=== PATIENT | female | born 1995 | race African-American/Black ===

== ENCOUNTER 2016-03-18 14:20 | Emergency (ER) | payer MEDICAID ==
[~2016-03-18] VITALS: Ht 162.6 cm; Wt 57.2 kg
[~2016-03-18 14:20] MED LIST: ASPI81CH43; LEVE250T18 PO; OMEP20CA5 PO
[2016-03-18 15:20] LABS: Basophils # (auto) 0 uL; Basophils % (auto) 0.6 % (0.0-2.0); DEFINITIVE VIEW TRANSMISSION; Eosinophils # (auto) 0 uL; Eosinophils % (auto) 0.5 % (0.0-7.0); Hematocrit 37.3 % (36.0-46.0); Hemoglobin 11.9 g/dL (12.2-16.2); Lymphocytes # (auto) 1.3 uL; Lymphocytes % (auto) 18.6 % (10.0-50.0); Mean Corpuscular Hemoglobin 26.7 pg (28.0-32.0); Mean Corpuscular Volume 83.4 fL (80.0-100.0); Monocytes # (auto) 0.3 uL; Monocytes % (auto) 5.1 % (0.0-12.0); Neutrophils # (auto) 5.2 uL; Neutrophils % (auto) 75.2 % (37.0-80.0); Platelet Count (auto) 242 10^3/uL (140-450); Red Cell Distribution Width 16.6 % (11.6-16.0); SUSPECT VIEW TRANSMISSION; White Blood Cell 6.9 10^3/uL (4.4-10.8)
[2016-03-18 15:43] LABS: Albumin 3.7 g/dL (3.4-5.0); BUN/Creatinine Ratio 18.3; Bilirubin, Total 0.4 mg/dL (0.2-1.0); Calcium 9.3 mg/dL (8.5-10.1); Potassium 3.2 mmol/L (3.5-5.1); Total Protein 8.3 g/dL (6.4-8.2)
[2016-03-18 17:47] LABS: Urine Bilirubin Negative (Negative); Urine Blood Negative /uL (Negative); Urine Color Yellow (Yellow); Urine Glucose Normal (Normal); Urine Mucus FEW (None Seen); Urine Nitrite Negative (Negative); Urine RBC 59 /hpf (0 - 4); Urine Squamous Epithelial Cell MANY /hpf (<5); Urine pH 6.5 (5.0-8.0)
[2016-03-18 17:58] LABS: Urine Ketone 4+ (Negative)
[2016-03-18] MEDS ORDERED: cefTRIAXone SOD 1,000 MG VL IM ONE (18:45)
[2016-03-18] MEDS ORDERED: POTASSIUM CHL 20 Meq TABLET PO ONE (18:45)
[2016-03-18] MEDS ORDERED: PROMETHAZINE HCL 25 MG/ML 1ML IM ONE (18:45)
[2016-03-18 19:12] VITALS: BP 111/69
== END 2016-03-18 19:48 | disposition home or self-care (01) ==
LOC: ER 14:24
DX: O23.42 Unspecified infection of urinary tract in pregnancy, second trimester (principal); O21.9 Vomiting of pregnancy, unspecified; Z88.8 Allergy status to other drugs, medicaments and biological substances
CPT/HCPCS: 36415; 80053; 81001; 84702; 85025; 96372; 99284; J0696; J2550

== ENCOUNTER 2016-04-29 16:19 | Emergency (ER) | payer MEDICAID ==
[~2016-04-29] VITALS: Ht 162.6 cm; Wt 68.0 kg
[2016-04-29 16:27] VITALS: BP 124/78
[2016-04-29 16:51] LABS: Basophils # (auto) 0.1 uL; Basophils % (auto) 0.8 % (0.0-2.0); Eosinophils # (auto) 0.1 uL; Eosinophils % (auto) 1.6 % (0.0-7.0); Hematocrit 39.5 % (36.0-46.0); Hemoglobin 12.8 g/dL (12.2-16.2); Lymphocytes # (auto) 1.7 uL; Lymphocytes % (auto) 20.5 % (10.0-50.0); Mean Corpuscular Hemoglobin 27.2 pg (28.0-32.0); Mean Corpuscular Hgb Conc. 32.4 g/dL (32.0-36.0); Mean Corpuscular Volume 83.8 fL (80.0-100.0); Mean Platelet Volume 10.8 fL (7.4-10.4); Monocytes # (auto) 0.5 uL; Monocytes % (auto) 5.3 % (0.0-12.0); Neutrophils # (auto) 6.1 uL; Neutrophils % (auto) 71.8 % (37.0-80.0); Platelet Count (auto) 164 10^3/uL (140-450); Red Cell Distribution Width 15.6 % (11.6-16.0); White Blood Cell 8.5 10^3/uL (4.4-10.8)
[2016-04-29 17:18] LABS: Albumin 3.3 g/dL (3.4-5.0); BUN/Creatinine Ratio 12.8; Calcium 8.3 mg/dL (8.5-10.1); Potassium 3.3 mmol/L (3.5-5.1)
[2016-04-29 17:21] LABS: Bilirubin, Total 0.2 mg/dL (0.2-1.0); Total Protein 7.8 g/dL (6.4-8.2)
== END 2016-04-30 02:04 | disposition left against medical advice (07) ==
LOC: EDUNIT# 16:19 → ER 16:23
DX: O26.892 Other specified pregnancy related conditions, second trimester (principal); R10.9 Unspecified abdominal pain; O21.9 Vomiting of pregnancy, unspecified; Z53.21 Procedure and treatment not carried out due to patient leaving prior to being seen by health care provider
CPT/HCPCS: 36415; 76805; 80053; 84702; 85025

== ENCOUNTER 2016-08-04 12:00 | Observation (INO) | payer MEDICAID, OTHER ==
[~2016-08-04 12:00] MED LIST changes: -OMEP20CA5 PO; +OMEP20CA74 PO
== END 2016-08-04 13:25 | disposition other institution (70) | DRG 566 ==
LOC: EDBD → LDRP 12:00
PROVIDERS: ADMIT Specialist; ATTEND Specialist
DX: O26.893 Other specified pregnancy related conditions, third trimester (principal); K92.0 Hematemesis; R04.0 Epistaxis; Z3A.36 36 weeks gestation of pregnancy
CPT/HCPCS: 59025; 81002; G0378

== ENCOUNTER 2016-08-04 13:35 | Emergency (ER) | payer MEDICAID ==
[~2016-08-04] VITALS: Ht 162.6 cm; Wt 68.0 kg
[2016-08-04 14:02] VITALS: BP 117/77
[2016-08-04 14:29] LABS: Basophils # (auto) 0 uL; Basophils % (auto) 0.4 % (0.0-2.0); CONDITION Y; DEFINITIVE Y; Eosinophils # (auto) 0 uL; Eosinophils % (auto) 0.6 % (0.0-7.0); Hematocrit 35.5 % (36.0-46.0); Hemoglobin 11.3 g/dL (12.2-16.2); Lymphocytes # (auto) 1.2 uL; Lymphocytes % (auto) 15.5 % (10.0-50.0); Mean Corpuscular Hemoglobin 26.6 pg (28.0-32.0); Mean Corpuscular Hgb Conc. 31.7 g/dL (32.0-36.0); Mean Corpuscular Volume 83.9 fL (80.0-100.0); Mean Platelet Volume 11.9 fL (7.4-10.4); Monocytes # (auto) 0.6 uL; Monocytes % (auto) 7.9 % (0.0-12.0); Neutrophils # (auto) 5.7 uL; Neutrophils % (auto) 75.6 % (37.0-80.0); Platelet Count (auto) 154 10^3/uL (140-450); Red Cell Distribution Width 16.3 % (11.6-16.0); White Blood Cell 7.5 10^3/uL (4.4-10.8)
[2016-08-04 14:50] LABS: Albumin 2.5 g/dL (3.4-5.0); BUN/Creatinine Ratio 11.3; Bilirubin, Total 0.2 mg/dL (0.2-1.0); Calcium 8.2 mg/dL (8.5-10.1); Potassium 4.4 mmol/L (3.5-5.1); Total Protein 7.2 g/dL (6.4-8.2)
== END 2016-08-04 19:54 | disposition left against medical advice (07) ==
LOC: EDBD → ER 13:35
DX: R11.2 Nausea with vomiting, unspecified (principal); Z53.21 Procedure and treatment not carried out due to patient leaving prior to being seen by health care provider
CPT/HCPCS: 36415; 80053; 85025

== ENCOUNTER 2016-08-04 19:33 | Observation (INO) | payer MEDICAID ==
[2016-08-04] MEDS ORDERED: LACTATED RINGER'S 1,000 ML IV ONE (20:36)
[2016-08-04] MEDS ORDERED: ONDANSETRON HCL 4 MG/2 ML VIAL IV ONE (20:45)
[2016-08-04 21:03] LABS: Urine Bilirubin Negative (Negative); Urine Color Yellow (Yellow); Urine Glucose Normal (Normal); Urine Ketone TRACE (Negative); Urine Mucus FEW (None Seen); Urine Nitrite Negative (Negative); Urine RBC 18 /hpf (0 - 4); Urine Squamous Epithelial Cell MOD /hpf (<5); Urine WBC Clumps PRESENT /hpf (None Seen); Urine pH 6.5 (5.0-8.0)
[2016-08-04 21:08] LABS: Urine Blood 1+ /uL (Negative)
== END 2016-08-04 22:44 | disposition home or self-care (01) | DRG 566 ==
LOC: EDBD → LDRP 19:33
PROVIDERS: ADMIT Specialist; ATTEND Specialist
DX: O42.913 Preterm premature rupture of membranes, unspecified as to length of time between rupture and onset of labor, third trimester (principal); O22.33 Deep phlebothrombosis in pregnancy, third trimester; I82.4Z2 Acute embolism and thrombosis of unspecified deep veins of left distal lower extremity; E86.0 Dehydration; O99.283 Endocrine, nutritional and metabolic diseases complicating pregnancy, third trimester; O21.2 Late vomiting of pregnancy; O26.893 Other specified pregnancy related conditions, third trimester; M54.9 Dorsalgia, unspecified; R10.30 Lower abdominal pain, unspecified; Z3A.36 36 weeks gestation of pregnancy; Z79.01 Long term (current) use of anticoagulants
CPT/HCPCS: 80307; 81001; 87086; 96374; G0378

== ENCOUNTER 2016-08-05 01:57 | Observation (INO) | payer MEDICAID ==
[~2016-08-05] VITALS: Ht 162.6 cm; Wt 68.0 kg
[2016-08-05] MEDS ORDERED: SODIUM CHLORIDE 0.9% 1,000 ML IV ONE (07:37)
[2016-08-05 07:59] LABS: Basophils # (auto) 0 uL; Basophils % (auto) 0.3 % (0.0-2.0); CONDITION AutoValidated; DEFINITIVE SEE PRINTOUT; Eosinophils # (auto) 0 uL; Eosinophils % (auto) 0.5 % (0.0-7.0); Hematocrit 33.1 % (36.0-46.0); Hemoglobin 10.6 g/dL (12.2-16.2); Lymphocytes # (auto) 1.1 uL; Lymphocytes % (auto) 14.7 % (10.0-50.0); Mean Corpuscular Hemoglobin 26.2 pg (28.0-32.0); Mean Corpuscular Hgb Conc. 31.9 g/dL (32.0-36.0); Mean Corpuscular Volume 82.2 fL (80.0-100.0); Mean Platelet Volume 11.1 fL (7.4-10.4); Monocytes # (auto) 0.5 uL; Monocytes % (auto) 7.1 % (0.0-12.0); Neutrophils # (auto) 5.7 uL; Neutrophils % (auto) 77.4 % (37.0-80.0); Platelet Count (auto) 187 10^3/uL (140-450); Red Cell Distribution Width 16.1 % (11.6-16.0); White Blood Cell 7.4 10^3/uL (4.4-10.8)
[2016-08-05 08:19] LABS: Partial Thromboplastin Time 27.3 sec (22.64-33.71); Prothrombin Time 9.7 sec (9.37-12.3)
[2016-08-05 08:23] LABS: INR 0.89 (0.9-1.15)
[2016-08-05 08:37] LABS: Albumin 2.7 g/dL (3.4-5.0); BUN/Creatinine Ratio 14.5; Bilirubin, Total 0.2 mg/dL (0.2-1.0); Calcium 8.6 mg/dL (8.5-10.1); Potassium 4.5 mmol/L (3.5-5.1); Total Protein 7.1 g/dL (6.4-8.2)
[2016-08-05] MEDS ORDERED: PROMETHAZINE HCL 25 MG/ML 1ML IM ONE (08:45)
[2016-08-05 09:10] LABS: Urine Bilirubin Negative (Negative); Urine Blood TRACE /uL (Negative); Urine Color Yellow (Yellow); Urine Glucose Normal (Normal); Urine Ketone TRACE (Negative); Urine Mucus FEW (None Seen); Urine Nitrite Negative (Negative); Urine RBC 35 /hpf (0 - 4); Urine Squamous Epithelial Cell MOD /hpf (<5); Urine pH 6.5 (5.0-8.0)
[2016-08-05 10:27] VITALS: BP 106/72
== END 2016-08-05 10:33 | disposition home or self-care (01) | DRG 463 ==
LOC: EDBD → ER 01:57 → OVERFLOW 07:11 → ER 10:33
PROVIDERS: ADMIT Emergency Medicine; ATTEND Emergency Medicine
DX: N39.0 Urinary tract infection, site not specified (principal); Z87.11 Personal history of peptic ulcer disease; Z79.899 Other long term (current) drug therapy
CPT/HCPCS: 36415; 80053; 81001; 85025; 85610; 85730; 96372; 99285; G0378; J2550

== ENCOUNTER 2016-08-08 18:57 | Observation (INO) | payer MEDICAID ==
[~2016-08-08] VITALS: Ht 167.6 cm; Wt 77.1 kg
[2016-08-08] MEDS ORDERED: DEXTROSE 50% SYRINGE 50 ML IV ONE (19:09)
[2016-08-08] MEDS ORDERED: SODIUM CHLORIDE 0.9% 1,000 ML IVB ONE (19:18)
[2016-08-08] MEDS ORDERED: DEXTROSE (50%) 50ML SYRG IV ONE (19:30)
[2016-08-08] MEDS ORDERED: ONDANSETRON HCL 4 MG/2 ML VIAL ONE (19:31)
[2016-08-08] MEDS ORDERED: ONDANSETRON HCL 4 MG/2 ML VIAL IV ONE ×2 (19:45→21:45)
[2016-08-08 20:18] LABS: Basophils # (auto) 0 uL; CONDITION Y; DEFINITIVE SEE PRINTOUT; Eosinophils # (auto) 0 uL; Lymphocytes # (auto) 1.2 uL; Mean Corpuscular Hemoglobin 26.1 pg (28.0-32.0); Monocytes # (auto) 0.4 uL; Neutrophils # (auto) 4.8 uL; White Blood Cell 6.5 10^3/uL (4.4-10.8)
[2016-08-08 20:23] LABS: Basophils % (auto) 0.6 % (0.0-2.0); Eosinophils % (auto) 0.4 % (0.0-7.0); Hematocrit 31.5 % (36.0-46.0); Hemoglobin 10.1 g/dL (12.2-16.2); Mean Corpuscular Volume 81.7 fL (80.0-100.0); Mean Platelet Volume 12.4 fL (7.4-10.4); Monocytes % (auto) 6.1 % (0.0-12.0); Neutrophils % (auto) 73.9 % (37.0-80.0); Platelet Count (auto) 162 10^3/uL (140-450); Red Cell Distribution Width 15.8 % (11.6-16.0); SUSPECT SEE PRINTOUT
[2016-08-08 20:36] LABS: Partial Thromboplastin Time 30.2 sec (22.64-33.71); Prothrombin Time 9.7 sec (9.37-12.3)
[2016-08-08 20:37] LABS: Albumin 2.5 g/dL (3.4-5.0); Alkaline Phosphatase 122 U/L (45-117); Anion Gap 10 (5-15); Aspartate Aminotransferase 39 U/L (15-37); BUN/Creatinine Ratio 12.1; Bilirubin, Total 0.2 mg/dL (0.2-1.0); Blood Urea Nitrogen 11 mg/dL (7-18); Calcium 8.2 mg/dL (8.5-10.1); Carbon Dioxide 20 mmol/L (21-32); Chloride 109 mmol/L (98-107); GFR African American 100 mL/min; GFR Non-African American 83 mL/min; Glucose 120 mg/dL (74-106); Magnesium 1.9 mg/dL (1.6-2.6); Potassium 3.3 mmol/L (3.5-5.1); Sodium 139 mmol/L (136-145); Total Protein 6.7 g/dL (6.4-8.2)
[2016-08-08 20:40] LABS: INR 0.89 (0.9-1.15)
[2016-08-08] MEDS ORDERED: MAGNESIUM SULFATE 1GM/100ML 100 ML IV SCH (21:30)
[2016-08-08] MEDS ORDERED: LACTATED RINGER'S 1,000 ML IV ONE (21:45)
[2016-08-08] MEDS ORDERED: SODIUM CHLORIDE 0.9% 1,000 ML IV ONE (21:45)
[2016-08-08] MEDS ORDERED: METOCLOPRAMIDE HCL 5MG/ml INJ 2ml VIAL IV ONE (22:30)
[2016-08-08 22:49] VITALS: BP 132/89
[2016-08-08 23:03] LABS: Urine Bilirubin Negative (Negative); Urine Color Yellow (Yellow); Urine Mucus FEW (None Seen); Urine Nitrite Negative (Negative); Urine RBC 53 /hpf (0 - 4); Urine Squamous Epithelial Cell MANY /hpf (<5); Urine Urobilinogen Normal (Negative); Urine pH 6.5 (5.0-8.0)
[2016-08-08 23:04] LABS: Urine Blood 1+ /uL (Negative); Urine Glucose 3+ mg/dL (Normal); Urine Ketone 1+ (Negative)
[2016-08-08] MEDS ORDERED: NITROFURANTOIN (MONO) 100 mg CAP PO ONE ×2 (23:35→23:45)
== END 2016-08-08 23:54 | disposition home or self-care (01) | DRG 566 ==
LOC: EDUNIT# 18:57 → ER 19:06 → EDBD 19:06 → OVERFLOW 19:19 → ER 23:54
PROVIDERS: ADMIT Family Medicine; ATTEND Family Medicine
DX: O26.893 Other specified pregnancy related conditions, third trimester (principal); R56.9 Unspecified convulsions; O23.43 Unspecified infection of urinary tract in pregnancy, third trimester; Z3A.39 39 weeks gestation of pregnancy; Z87.11 Personal history of peptic ulcer disease
CPT/HCPCS: 36415; 76805; 76818; 80053; 80307; 80320; 81001; 82962; 83735; 84550; 85025; 85362; 85379; 85610; 85730; 93005; 96361; 96374; 96375; 99285; G0378; J2405; J2765; J7030; J7042

== ENCOUNTER 2020-10-18 16:00 | Emergency (ER) | payer MEDICAID ==
[~2020-10-18] VITALS: Ht 162.6 cm; Wt 60.8 kg
[2020-10-18 21:00] VITALS: BP 102/64
== END 2020-10-18 21:37 | disposition home or self-care (01) ==
LOC: ER 16:00
DX: U07.1 COVID-19 (principal); R51.9 Headache, unspecified; R11.2 Nausea with vomiting, unspecified; R53.83 Other fatigue
CPT/HCPCS: 36415; 71045; 87426